=== PATIENT | female | born 1990 | race Two or more races ===

== ENCOUNTER 2025-03-30 22:06 | Emergency (ER) | payer MEDICAID, SELFPAY ==
[2025-03-30 22:09] VITALS: BMI 29.7
[2025-03-30 22:22] VITALS: BP 131/85; PULSE 82; RESP 20; TEMP 36.9; O2SAT 95
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
[2025-03-31 00:36] LABS: HCG,Qualitative Serum Negative
== END 2025-03-31 00:35 | disposition home or self-care (01) ==
PROVIDERS: Nurse Practitioner Family; Emergency Provider Emergency Medicine
DX: S06.0XAA Concussion with loss of consciousness status unknown, initial encounter (principal); S13.9XXA Sprain of joints and ligaments of unspecified parts of neck, initial encounter; V86.56XA Driver of dirt bike or motor/cross bike injured in nontraffic accident, initial encounter; Y93.55 Activity, bike riding
CPT/HCPCS: 36415; 70450; 72125; 84703; 99283